=== PATIENT | female | born 2000 | race African-American/Black ===

== ENCOUNTER 2023-06-13 14:18 | Emergency (ER) | payer BC, SELFPAY ==
--- NOTE | 2023-06-13 14:20 | ED.FEMALEGU ---
HPI - Female Genitourinary General Chief complaint: Urogenital-Female Stated complaint: STD Time Seen by Provider: 06/13/23 14:48 Source: patient and RN notes reviewed Mode of arrival: ambulatory Limitations: no limitations History of Present Illness HPI Narrative: 22-year-old female presents concern for possible exposure to STDs. She denies symptoms but reports having unprotected sex with multiple partners. She reports history of treated STDs MD elicited complaint: possible STD Related Data Allergies Allergy/AdvReac Type Severity Reaction Status Date / Time No Known Allergies Allergy Unknown Verified 06/13/23 14:40 Review of Systems Review of Systems: CONSTITUTIONAL: Denies malaise, chills, sweats, or fever. CARDIOVASCULAR: Denies chest pain, palpitations, or edema. RESPIRATORY: Denies cough or dyspnea. GASTROINTESTINAL: Denies abdominal pain, nausea, vomiting, diarrhea GENITOURINARY: Denies vaginal discharge, dysuria, frequency, urgency, suprapubic pressure. Denies flank pain or hematuria. SKIN: Denies rash or itching. MUSCULOSKELETAL: Denies back pain or myalgia. All systems reviewed & are unremarkable except as noted in HPI and below PMFSH Past Medical History Medical History Encounter for counseling regarding contraception Epidermal inclusion cyst Gonorrhea Hemorrhoidal skin tag Hidradenitis suppurativa of right axilla Increased urinary frequency Right ear pain STD (sexually transmitted disease) Upper respiratory infection Vaginal odor Well child visit Social History Social History Social History: Single Smoking status: Never smoker Second hand tobacco smoke exposure: No Alcohol intake: never Substance use: never Substance use type: does not use Lack of Transportation: No Lack of Food: Never True Current Housing: I Have Housing Concerned About Future Housing: No Difficulty Paying Gas/Electric Bills: No Difficulty Paying for Meds: No Currently Unemployed: No Education: Decline to Answer Difficulty w/ Childcare or Family Care: No Living arrangements: with family Occupation/Education: occupation Additional occupation/education comments: 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 Gender identity (if verbalized by the patient): Female Sexual Orientation (if Verbalized by the Patient): Straight or Heterosexual Spiritual care concerns: No Comments At time of signature, agree with nursing past medical, surgical, social and family history. There is no relevant family history pertinent to the presenting complaint Exam Narrative: GENERAL: Well-appearing, well-nourished, and in no acute distress. HEAD: Normocephalic. EYES: PERRLA, conjunctivae clear. NECK: Supple. No lymphadenopathy CHEST: Clear to auscultation. No respiratory distress. HEART: Regular rate and rhythm. SKIN: Warm, dry, no rash. NEURO: Alert and oriented x3. PSYCH: Normal mood and affect Course Course Emergency Course: Patient does not want to start on antibiotics prophylactically, she would rather wait for results. She understands that she may need to return for an injection. Patient is aware of diagnosis, understands and agrees to treatment plan. Anticipatory guidance given. Patient agrees to follow-up as directed and is aware of reasons to seek care at the emergency department. Portions of this record may have been created with voice recognition software Level of Care: Express Care Visit Vital Signs Vital signs: Reviewed. MDM - Female Genitourinary MDM Narrative Medical decision making narrative: Exam findings and UA show no acute concerns or changes; patient is non-toxic appearing and is in no distress. Patient is appropriate for outpatient treatment and follow-up. Differential Diagnosis Differential diagnosis: Likely urinary tract infection and cystitis Critical Care Time Cr
[2023-06-13 14:30] VITALS: BP 125/70; PULSE 93; RESP 14; TEMP 36.9; O2SAT 100
[2023-06-13 18:07] LABS: Trichomonas Vag PCR NOT DETECTED (NOT DETECTE)
[2023-06-13 18:33] LABS: Chlamydia trachomatis DETECTED (NOT DETECTE); Neisseria gonorrhoeae PCR NOT DETECTED (NOT DETECTE)
== END 2023-06-13 15:01 | disposition home or self-care (01) ==
PROVIDERS: Emergency Provider Nurse Practitioner; PCP Family Medicine
DX: Z11.3 Encounter for screening for infections with a predominantly sexual mode of transmission (principal)
CPT/HCPCS: 87491; 87591; 87661; 99214; G0463

== ENCOUNTER 2024-03-17 10:46 | Outpatient (CLI) | payer BC, SELFPAY ==
--- NOTE | ~2024-03-17 | XR_ITS ---
CHEST RADIOGRAPH, PA AND LATERAL CLINICAL HISTORY: CENTRALIZED CHEST PAIN X 3 WKS . COMPARISON: None available TECHNIQUE: PA and lateral views of the chest. FINDINGS The cardiomediastinal silhouette is unremarkable. The lungs are clear. Visualized osseous structures and soft tissues are unremarkable. IMPRESSION: No focal infiltrate or effusion. Reviewed, dictated and finalized at location A.
== END 2024-03-17 10:47 | disposition home or self-care (01) ==
PROVIDERS: PCP Family Medicine; Visit Provider Family Medicine
DX: R07.9 Chest pain, unspecified (principal)
CPT/HCPCS: 71046

== ENCOUNTER 2024-03-17 11:55 | Emergency (ER) | payer BC, SELFPAY ==
[2024-03-17 12:03] VITALS: BP 124/76; PULSE 78; RESP 18; TEMP 36.9; O2SAT 100
--- NOTE | 2024-03-17 12:34 | ED.FEMALEGU ---
HPI - Female Genitourinary General Chief complaint: Urogenital-Female Stated complaint: STD Time Seen by Provider: 03/17/24 12:34 Source: patient, RN notes reviewed and old records reviewed Mode of arrival: ambulatory Limitations: no limitations History of Present Illness HPI Narrative: 23-year-old female presents to the [facility] with concerns for an STD. Patient reports abnormal smell and abnormal discharge that started approximately 10 days ago. Onset (ago): day(s) (10) Related Data Allergies Allergy/AdvReac Type Severity Reaction Status Date / Time No Known Allergies Allergy Unknown Verified 03/17/24 12:00 Review of Systems Review of Systems: All systems reviewed & are unremarkable except as noted in HPI and below Constitutional: Constitutional: Reports no additional constitutional complaints Eyes: Eyes: Reports no additional eye complaints ENT: Reports system reviewed and no additional complaints, except as documented Cardiovascular: Cardiovascular: Reports no additional cardiovascular complaints, Denies chest pain and Denies dyspnea Respiratory: Respiratory: Reports no additional respiratory complaints, Denies chest congestion, Denies cough and Denies dyspnea Gastrointestinal: Gastrointestinal: Reports no additional gastrointestinal complaints, Denies abdominal pain, Denies nausea and Denies vomiting Genitourinary: Genitourinary: Reports as per HPI Musculoskeletal: Musculoskeletal: Reports no additional musculoskeletal complaints Integumentary/Breasts: Skin/Breast: Reports system reviewed and no additional complaints, except as docu Neurologic: Reports system reviewed and no additional complaints, except as documented Psychiatric: Psychiatric: Reports no additional psychiatric complaints Allergic/Immunologic: Allergic/Immunologic: Reports no additional allergic/immunologic complaints PMFSH Past Medical History Medical History Encounter for counseling regarding contraception Epidermal inclusion cyst Gonorrhea Hemorrhoidal skin tag Hidradenitis suppurativa of right axilla HPV vaccine counseling Increased urinary frequency Right ear pain School physical exam STD (sexually transmitted disease) Unspecified sprain of right thumb, initial encounter Upper respiratory infection URI, acute Vaginal odor Well child visit Social History Social History Social History: Single Smoking status: Never smoker Second hand tobacco smoke exposure: No Alcohol intake: never Substance use: never Substance use type: does not use Lack of Transportation: No Lack of Food: Never True Current Housing: I Have Housing Concerned About Future Housing: No Difficulty Paying Gas/Electric Bills: No Difficulty Paying for Meds: No Currently Unemployed: No Education: Decline to Answer Difficulty w/ Childcare or Family Care: No Living arrangements: with family Occupation/Education: occupation Additional occupation/education comments: 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 Gender identity (if verbalized by the patient): Female Sexual Orientation (if Verbalized by the Patient): Straight or Heterosexual Spiritual care concerns: No Comments At the time of my signature, I reviewed and agree with the nursing past medical, surgical, social, and family history. There is no relevant family history pertinent to the patient complaint. Exam Const: General: cooperative, healthy appearing, comfortable, no acute distress, well developed, alert and well nourished Nutritional Appearance: well nourished Orientation/consciousness: patient oriented x3 Limitations: no limitations HENMT: Head: normal to inspection Ears: hearing grossly normal bilaterally and external ears normal Face/Nose/Sinus: Normal external nose present, normal facial exam and face symmetric Face and sinus: normal facial exam and face symmetric Ey
[2024-03-17 12:46] LABS: BEDSIDEPREGUCG Negative (Negative); EDUAAPPEAR Clear; EDUABILI Negative (Negative); EDUABLOOD Negative (Negative); EDUACOLOR1 Yellow; EDUAGLUCOSE Negative (Negative); EDUAKETONE Negative (Negative); EDUALEUKO Negative (Negative); EDUANITRATE Negative (Negative); EDUAPROTEIN Negative (Negative); EDUASPGRAVITY 1.025; EDUAUROBILI 0.2
[2024-03-18 12:38] LABS: Bacterial Vaginosis POSITIVE (NEGATIVE)
[2024-03-18 14:29] LABS: Trichomonas Vag PCR NOT DETECTED (NOT DETECTE)
[2024-03-18 14:55] LABS: Chlamydia trachomatis NOT DETECTED (NOT DETECTE); Neisseria gonorrhoeae PCR NOT DETECTED (NOT DETECTE)
== END 2024-03-17 12:59 | disposition home or self-care (01) ==
PROVIDERS: Emergency Provider Nurse Practitioner; PCP Family Medicine
DX: N76.0 Acute vaginitis (principal); B37.31 Acute candidiasis of vulva and vagina; Z20.2 Contact with and (suspected) exposure to infections with a predominantly sexual mode of transmission
CPT/HCPCS: 81003; 81025; 81513; 87070; 87491; 87591; 87661; 99213; G0463

== ENCOUNTER 2024-11-08 08:33 | Emergency (ER) | payer BC, SELFPAY ==
--- NOTE | 2024-11-08 08:50 | ED_ITS ---
HPI - General Adult General Stated complaint: std testing Source: patient Mode of arrival: ambulatory Limitations: no limitations History of Present Illness HPI narrative: the patient is a 23-year-old female presenting for STD testing. Patient reports intermittent vaginal itching. Denies known exposure to sexually transmitted infection. Does report engaging in unprotected sexual intercourse sometimes. Denies menstrual abnormalities. Denies any abnormal vaginal discharge. no Additional complaints. Related Data Allergies Allergy/AdvReac Type Severity Reaction Status Date / Time No Known Allergies Allergy Unknown Verified 08/30/24 08:59 Review of Systems Review of Systems: CONSTITUTIONAL: Denies body aches, fever, chills, or sweats. EYES: Denies visual changes, redness, or discharge. ENT: Denies rhinorrhea, congestion, sore throat, or otalgia. CARDIOVASCULAR: Denies chest pain, palpitations, or edema. RESPIRATORY: Denies cough or dyspnea. GASTROINTESTINAL: Denies abdominal pain, nausea, vomiting, or diarrhea. GENITOURINARY: reports intermittent vaginal itching Denies dysuria or hematuria. SKIN: Denies rash, itching, or wounds. MUSCULOSKELETAL: Denies back pain, joint pain, or myalgia. NEUROLOGIC: Denies headache, numbness, tingling, or weakness. PSYCH: Denies depression or anxiety. All systems reviewed & are unremarkable except as noted in HPI and below Genitourinary: Genitourinary: Reports as per HPI, Denies abnormal menses, Denies abnormal vaginal bleeding, Denies genital lesions, Denies dyspareunia, Denies dysuria, Denies flank pain, Denies vaginal discharge, Denies vaginal dryness and Denies vaginal odor PMFSH Past Medical History Medical History Chest pain at rest URI, acute Unspecified sprain of right thumb, initial encounter School physical exam HPV vaccine counseling Hidradenitis suppurativa of right axilla Epidermal inclusion cyst STD (sexually transmitted disease) Gonorrhea Increased urinary frequency Vaginal odor Hemorrhoidal skin tag Right ear pain Upper respiratory infection Encounter for counseling regarding contraception Well child visit Social History Social History Social History: Single Smoking status: Never smoker Second hand tobacco smoke exposure: No Alcohol intake: never Substance use: never Substance use type: does not use Do You Feel Safe in your Home?: Yes Lack of Transportation: No Lack of Food: Never True Current Housing: I Have Housing Concerned About Future Housing: No Difficulty Paying Gas/Electric Bills: No Difficulty Paying for Meds: No Currently Unemployed: No Education: Decline to Answer Difficulty w/ Childcare or Family Care: No Living arrangements: with family Occupation/Education: occupation Additional occupation/education comments: 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 Gender identity (if verbalized by the patient): Female Sexual Orientation (if Verbalized by the Patient): Straight or Heterosexual Spiritual care concerns: No Exam Narrative: GENERAL: Well-appearing, well-nourished, and in no acute distress. HEAD: Normocephalic, atraumatic. EYES: EOMI. No redness or drainage. Conjunctivae normal. ENT: Mucous membranes pink and moist. Nares clear. No rhinorrhea. TMs normal bilaterally. Throat normal. Uvula midline. NECK: Normal AROM. Supple. No lymphadenopathy. CHEST: No respiratory distress. Clear to auscultation. HEART: Regular rate and rhythm. No murmur appreciated. Normal peripheral pulses. ABDOMEN: Soft, nontender, nondistended, normal active bowel sounds. no CVAT. MUSCULOSKELETAL: No bony tenderness. EXTREMITIES: Normal range of motion. No edema. SKIN: Warm, dry, no rash. Capillary refill normal. Normal skin turgor. NEURO: No focal deficits. Alert and oriented x3. Gait steady. PSYCH: Normal affect. No signs of depression or anxiety. : General: Yes other ( Declined pelvic exam) Course Course Level of Care: Express Care Visit Vital Signs Vital signs: Vital Signs Temperature 98.0 F 11/08/24 08:51 Pulse Rate 83 11/08/24 08:51 Respiratory Rate 16 11/08/24 08:51 Blood Pressure 128/72 11/08/24 08:51 Pulse Oximetry 99 11/08/24 08:51 Oxygen Delivery Room Air 11/08/24 08:51 Temperature 98.0 F 11/08/24 08:51 Pulse Rate 83 11/08/24 08:51 Respiratory Rate 16 11/08/24 08:51 Blood Pressure 128/72 11/08/24 08:51 Pulse Oximetry 99 11/08/24 08:51 Oxygen Delivery Room Air 11/08/24 08:51 Medical Decision Making Medical Records Medical records reviewed: Yes I reviewed the external patient's medical records. Vital Signs Vital Signs: Vital Signs Temperature 98.0 F 11/08/24 08:51 Pulse Rate 83 11/08/24 08:51 Respiratory Rate 16 11/08/24 08:51 Blood Pressure 128/72 11/08/24 08:51 Pulse Oximetry 99 11/08/24 08:51 Oxygen Delivery Room Air 11/08/24 08:51 Temperature 98.0 F 11/08/24 08:51 Pulse Rate 83 11/08/24 08:51 Respiratory Rate 16 11/08/24 08:51 Blood Pressure 128/72 11/08/24 08:51 Pulse Oximetry 99 11/08/24 08:51 Oxygen Delivery Room Air 11/08/24 08:51 Discharge Plan Discharge Clinical Impression: At risk for sexually transmitted disease due to unprotected sex, Itching of vagina Patient Disposition: Home Condition: Stable Instructions: Safe Sex Practices (ED) Patient Language: Bengali Prescriptions: No Action hydroxyzine HCl 10 mg tablet 10 mg PO TID PRN (Reason: itching) Qty: 30 0RF norethindrone-e.estradiol-iron [Elicia Fe 06/26 (28)] 1 mg-20 mcg (21)/75 mg (7) tablet See Rx Instructions .ROUTE .COMPLEX Qty: 84 3RF Dose Instruction: Take 1 tablet by mouth once daily Rx Instructions: Take 1 tablet by mouth once daily Follow-up/Referrals: PHYSICIAN,[employer] [Primary Care Provider] - 11/08/24 Time of Disposition: 08:53
[2024-11-08 08:51] VITALS: BP 128/72; PULSE 83; RESP 16; TEMP 36.7; O2SAT 99
[2024-11-08 20:26] LABS: Trichomonas Vag PCR DETECTED (NOT DETECTE)
[2024-11-08 21:01] LABS: Chlamydia trachomatis DETECTED (NOT DETECTE); Neisseria gonorrhoeae PCR NOT DETECTED (NOT DETECTE)
== END 2024-11-08 09:25 | disposition home or self-care (01) ==
PROVIDERS: Emergency Provider Registered Nurse
DX: N89.8 Other specified noninflammatory disorders of vagina (principal); Z72.51 High risk heterosexual behavior; Z20.2 Contact with and (suspected) exposure to infections with a predominantly sexual mode of transmission
CPT/HCPCS: 87491; 87591; 87661; 99213; G0463

== ENCOUNTER 2024-12-01 16:36 | Emergency (ER) | payer BC, SELFPAY ==
[2024-12-01 16:47] VITALS: BP 142/81; PULSE 90; RESP 16; TEMP 36.7; O2SAT 100
[2024-12-01 17:07] LABS: EDUAAPPEAR Cloudy; EDUABILI Negative (Negative); EDUABLOOD 3+ (Negative); EDUACOLOR1 Pink; EDUAGLUCOSE Negative (Negative); EDUAKETONE Negative (Negative); EDUALEUKO 2+ (Negative); EDUANITRATE Negative (Negative); EDUAPH 6.5; EDUAPROTEIN 2+ (Negative); EDUASPGRAVITY 1.025; EDUAUROBILI 0.2
--- NOTE | 2024-12-01 17:08 | ED.FEMALEGU ---
HPI - Female Genitourinary General Chief complaint: Urogenital-Female Stated complaint: blood in urine Time Seen by Provider: 12/01/24 16:55 Source: patient Mode of arrival: ambulatory Limitations: no limitations History of Present Illness HPI Narrative: Lauren is a 23-year-old female patient presenting to the clinic today with complaints of blood in her urine, suprapubic pain, and urinary frequency. She reports symptoms started around 6:00p.m. last night. Recently has been treated for chlamydia, Trichomonas-was given doxycycline and metronidazole. She reports she finished this medication last week. States over the last few days she has had some vaginal irritation and itching. She denies any blood coming from the vagina or rectum. Noticed blood when she urinates and when she wipes after urination. Was prescribed some Diflucan and took her 1st dose today. Denies any fevers, chills, body aches, back pain, nausea, or vomiting. Related Data Home Medications ?Medication ?Instructions ?Recorded ?Confirmed ?Last Taken ?Type fluconazole 150 mg tablet mg 12/01/24 Unknown History Allergies Allergy/AdvReac Type Severity Reaction Status Date / Time No Known Allergies Allergy Unknown Verified 12/01/24 16:46 Review of Systems Review of Systems: Pertinent positives per HPI. Patient denies any fever, chills, rash, headache, visual changes, dizziness, cough, runny nose, sore throat, shortness of breath, chest pain, palpitations, nausea, vomiting, diarrhea, constipation PMFSH Past Medical History Medical History Chest pain at rest URI, acute Unspecified sprain of right thumb, initial encounter School physical exam HPV vaccine counseling Hidradenitis suppurativa of right axilla Epidermal inclusion cyst STD (sexually transmitted disease) Gonorrhea Increased urinary frequency Vaginal odor Hemorrhoidal skin tag Right ear pain Upper respiratory infection Encounter for counseling regarding contraception Well child visit Social History Social History Social History: Single Smoking status: Never smoker Second hand tobacco smoke exposure: No Alcohol intake: never Substance use: never Substance use type: does not use Do You Feel Safe in your Home?: Yes Lack of Transportation: No Lack of Food: Never True Current Housing: I Have Housing Concerned About Future Housing: No Difficulty Paying Gas/Electric Bills: No Difficulty Paying for Meds: No Currently Unemployed: No Education: Decline to Answer Difficulty w/ Childcare or Family Care: No Living arrangements: with family Occupation/Education: occupation Additional occupation/education comments: 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 Gender identity (if verbalized by the patient): Female Sexual Orientation (if Verbalized by the Patient): Straight or Heterosexual Spiritual care concerns: No Comments At the time of my signature, I reviewed and agree with the nursing past medical, surgical, social, and family history. There is no relevant family history pertinent to the patient complaint. Exam Narrative: General: Well-developed, well nourished, in no apparent distress. Head: Normocephalic, atraumatic. Cardio: Regular rate and rhythm, s1 and s2 normal, no murmur appreciated. Resp: Clear to auscultation bilaterally, no rhonchi, rales, wheezing or rubs. Abdomen: Soft, pliable, bowel sounds present in all quadrants, suprapubic tender to palpation, no organomegly, no CVAT tenderness. : Deferred Course Course Emergency Course: Portions of this record may have been created with voice recognition software. Level of Care: Express Care Visit Vital Signs Vital signs: Vital Signs Temperature 36.7 C 12/01/24 16:47 Pulse Rate 90 12/01/24 16:47 Respiratory Rate 16 12/01/24 16:47 Blood Pressure 142/81 H 12/01/24 16:47 Pulse Oximetry 100 12/01/24 16:47 Oxygen Delivery Room Air 12/01/24 16:47 Temperature 36.7 C 12/01/24 16:47 Pulse Rate 90 12/01/24 16:47 Respiratory Rate 16 12/01/24 16:47 Blood Pressure 142/81 H 12/01/24 16:47 Pulse Oximetry 100 12/01/24 16:47 Oxygen Delivery Room Air 12/01/24 16:47 Vital signs reviewed MDM - Female Genitourinary MDM Narrative Medical decision making narrative: At the time of visit patient is resting comfortably on the exam table. Patient appears to be nontoxic. Labs: Urinalysis positive for leukocytes, protein, and blood. We will send urine for culture. Plan: I suspect patient has UTI. Will send in prescription for Bactrim and extend the Diflucan prescription. We will send urine for culture. Supportive measures were discussed with the patient and they voiced understanding discharge instructions and agrees to treatment plan. Return precautions reviewed Differential Diagnosis Differential diagnosis: Likely urinary tract infection, bacterial vaginosis, trichomoniasis, cervicitis, ovarian cyst, vaginitis, ruptured ovarian cyst, cystitis and dysmenorrhea Lab Data Labs: Lab Results 12/01/24 Range/Units 16:53 POC Urine Color Interior POC Urine Clarity Cloudy POC Urine pH 6.5 POC Ur Specif [place] 1.025 POC Urine Protein 2+ (Negative) POC Ur Glucose (UA) Negative (Negative) POC Urine Ketones Negative (Negative) POC Urine Blood 3+ (Negative) POC Urine Nitrite Negative (Negative) POC Urine Bilirubin Negative (Negative) POC Urine Urobilinogen 0.2 POC U Leukocyte Esteras 2+ (Negative) Discharge Plan Discharge Clinical Impression: Vaginal yeast infection UTI (urinary tract infection) Qualifiers: Urinary tract infection type: acute cystitis Hematuria presence: with hematuria Qualified Code(s): N30.01 - Acute cystitis with hematuria Patient Disposition: Home Condition: Stable Instructions: Antibiotic Form, Urinary Tract Infection in Women (ED), Yeast Infection (ED) Additional Instructions: Urinalysis positive for leukocytes, blood, and protein. Take Bactrim DS as prescribed Take fluconazole as prescribed May purchase [id number] Monistat cream and apply to the external vagina No intercourse until your symptoms have resolved Increase fluids and stay well hydrated Wipe front to back. May use wet wipes. Avoid tub baths If sexually active- pee before and after intercourse. Wear cotton panties Avoid tight clothing up against the genitals Follow up with your PCP in 1 week if symptoms persist. Patient Language: [place] Prescriptions: New sulfamethoxazole-trimethoprim [Bactrim DS] 800-160 mg tablet 1 tablet PO Q12H 5 Days Qty: 10 0RF fluconazole 150 mg tablet 150 mg PO ONCE Qty: 2 0RF Rx Instructions: as a single dose. May repeat in 72 hours if needed. No Action fluconazole 150 mg tablet norethindrone-e.estradiol-iron [Elicia Fe 06/26 (28)] 1 mg-20 mcg (21)/75 mg (7) tablet See Rx Instructions .ROUTE .COMPLEX Qty: 84 3RF Dose Instruction: Take 1 tablet by mouth once daily Rx Instructions: Take 1 tablet by mouth once daily Follow-up/Referrals: Florence Guzman MD [Primary Care Provider] - Time of Disposition: 17:05 Quality NIHSS Nursing Documentation ED NIHSS nursing documentation: reviewed/agree
== END 2024-12-01 17:12 | disposition home or self-care (01) ==
PROVIDERS: Emergency Provider Nurse Practitioner Family; PCP Family Medicine
DX: N30.01 Acute cystitis with hematuria (principal); B37.31 Acute candidiasis of vulva and vagina
CPT/HCPCS: 81003; 87077; 87086; 87186; 99213; G0463

== ENCOUNTER 2025-02-21 09:17 | Outpatient (CLI) | payer BC, SELFPAY ==
[2025-02-21 10:18] LABS: Hepatitis B Surface Antigen Negative (Negative); Syphilis IgG/IgM Antibody Non-Reactive (Nonreactive)
[2025-02-21 10:24] LABS: HAV RESULT Negative (Negative); Hepatitis B Core IgM Result Negative (Negative)
[2025-02-21 10:28] LABS: HIV 1/2 Ab P24 Ag Result Negative (Negative)
[2025-02-21 10:41] LABS: Trichomonas Vag PCR NOT DETECTED (NOT DETECTE)
== END 2025-02-21 09:18 | disposition home or self-care (01) ==
LOC: ANHLAB 09:18
PROVIDERS: PCP Family Medicine; Visit Provider Student in an Organized Health Care Education/Training Program
DX: Z72.51 High risk heterosexual behavior (principal); Z20.2 Contact with and (suspected) exposure to infections with a predominantly sexual mode of transmission
CPT/HCPCS: 36415; 80074; 86593; 86703; 87491; 87591; 87661; G0432

== ENCOUNTER 2025-03-05 19:19 | Emergency (ER) | payer BC, SELFPAY ==
--- NOTE | 2025-03-05 19:24 | ED_ITS ---
HPI - Headache General Chief Complaint: Headache Stated Complaint: Headaches X 4 days Time Seen by Provider: 03/05/25 19:30 Source: patient Mode of arrival: ambulatory Limitations: no limitations History of Present Illness HPI Narrative: Lauren is a 24-year-old female patient presenting to the clinic today with complaints of headache x4 days. She reports she has been taking extra-strength Tylenol and this has not been taking her headache away. Rates her pain currently a 4/10 and states it is over the right occipital right/parietal lobe currently but the headache has been moving around. When headaches at it worst she feels fatigued. At time she does have some nausea but denies any nausea at this current time. No photosensitivity or phonophobia. Last menstrual period was February 05, 2025. Denies any chance of . Denies any dizziness or visual changes. No head injury. Denies any URI symptoms/sore throat. Related Data Allergies Allergy/AdvReac Type Severity Reaction Status Date / Time No Known Allergies Allergy Unknown Verified 03/05/25 19:32 Review of Systems Review of Systems: Pertinent positives per HPI. Patient denies any fever, chills, rash, visual changes, dizziness, cough, runny nose, sore throat, shortness of breath, chest pain, palpitations, nausea, vomiting, diarrhea, constipation, abdominal pain, or any urinary issues. [facility] Past Medical History Medical History Chest pain at rest URI, acute Unspecified sprain of right thumb, initial encounter School physical exam HPV vaccine counseling Hidradenitis suppurativa of right axilla Epidermal inclusion cyst STD (sexually transmitted disease) Gonorrhea Increased urinary frequency Vaginal odor Hemorrhoidal skin tag Right ear pain Upper respiratory infection Encounter for counseling regarding contraception Well child visit Social History Social History Social History: Single Smoking status: Never smoker Second hand tobacco smoke exposure: No Alcohol intake: never Substance use: never Substance use type: does not use Do You Feel Safe in your Home?: Yes Lack of Transportation: No Lack of Food: Never True Current Housing: I Have Housing Concerned About Future Housing: No Difficulty Paying Gas/Electric Bills: No Difficulty Paying for Meds: No Currently Unemployed: No Education: Decline to Answer Difficulty w/ Childcare or Family Care: No Living arrangements: with family Occupation/Education: occupation Additional occupation/education comments: 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 Gender identity (if verbalized by the patient): Female Sexual Orientation (if Verbalized by the Patient): Straight or Heterosexual Spiritual care concerns: No Comments At the time of my signature, I reviewed and agree with the nursing past medical, surgical, social, and family history. There is no relevant family history pertinent to the patient complaint. Exam Narrative: General: Well-developed, well nourished, in no apparent distress Head: Normocephalic, atraumatic Eyes: Pupils equally round and reactive to light bilaterally, EOM intact, sclera and conjunctive clear, no discharge, lids normal Ears: TMs intact and clear, ear canals clear, no drainage, grossly hearing normal. Nose: Nares patent, no discharge, no inflammation, no sinus tenderness. Mouth: Oropharynx without lesions or masses, good dentition, MMM. Tongue midline, even rise and fall of uvula Neck: Supple, trachea midline, no enlargement of anterior or posterior cervical nodes, no thyroid masses or goiter palpable. Cardio: Regular rate and rhythm, s1 and s2 normal, no murmur appreciated. Resp: Clear to auscultation bilaterally anteriorly and posteriorly, no rhonchi, rales, wheezing or rubs Musculoskeletal: No deformity, non-tender to palpation, grossly normal range of motion, muscle strength strong and equal, peripheral pulse strong, no edema, no cyanosis, normal gait and station Neuro: Alert and oriented x4 with normal speech, no focal deficits, cranial nerves I through XII intact, muscle strength 5 out of 5, sensation intact bilaterally, negative Romberg test Course Course Emergency Course: Portions of this record may have been created with voice recognition software. Level of Care: Express Care Visit Vital Signs Vital signs: Vital Signs Temperature 36.7 C 03/05/25 19:25 Pulse Rate 85 03/05/25 19:25 Respiratory Rate 16 03/05/25 19:25 Blood Pressure 126/72 03/05/25 19:25 Pulse Oximetry 100 03/05/25 19:25 Oxygen Delivery Room Air 03/05/25 19:25 Temperature 36.7 C 03/05/25 19:25 Pulse Rate 85 03/05/25 19:25 Respiratory Rate 16 03/05/25 19:25 Blood Pressure 126/72 03/05/25 19:25 Pulse Oximetry 100 03/05/25 19:25 Oxygen Delivery Room Air 03/05/25 19:25 Vital signs reviewed MDM - Headache MDM Narrative Medical decision making narrative: At the time of visit patient is resting comfortably on the exam table. Patient appears to be nontoxic. Complaints of headache x4 days. She reports she has been taking extra-strength Tylenol and this has not been taking her headache away. Rates her pain currently a 4/10 and states it is over the right occipital right/parietal lobe currently but the headache has been moving around. When headaches at it worst she feels fatigued. At time she does have some nausea but denies any nausea at this current time. No photosensitivity or phonophobia. Last menstrual period was February 05, 2025. Denies any chance of . Denies any dizziness or visual changes. No head injury. Denies any URI symptoms /sore throat. Toradol 60mg IM ordered. Medications: Toradol 60 mg IM given in the clinic today Plan: I suspect patient has acute headache. Toradol 60 mg IM given in the clinic today for headache. Pain down to a 2/10 after Toradol injection. May take Tylenol/Motrin as needed for pain. Supportive measures were discussed with the patient and they voiced understanding discharge instructions and agrees to treatment plan. Return precautions reviewed. Differential Diagnosis Differential diagnosis: Likely migraine, tension headache, subarachnoid hemorrhage, headache, meningitis, sinusitis and postconcussion syndrome Discharge Plan Discharge Clinical Impression: Headache Qualifiers: Headache type: tension-type Headache chronicity pattern: acute headache Intractability: not intractable Qualified Code(s): G44.209 - Tension-type headache, unspecified, not intractable Patient Disposition: Home Condition: Stable Instructions: Antibiotic Form, Acute Headache (ED) Additional Instructions: Toradol 60 mg IM given in the clinic today for headache Go home and rest in a cool dark place Increase fluids and stay well hydrated May take Tylenol/ibuprofen as needed for headache If headache is persistent follow-up with PCP for further evaluation If you develop worst headache of your life-recommend going to the emergency room for further evaluation Patient Language: French Prescriptions: No Action norethindrone-e.estradiol-iron [Elicia Fe 06/26 (28)] 1 mg-20 mcg (21)/75 mg (7) tablet See Rx Instructions .ROUTE .COMPLEX Qty: 84 3RF Dose Instruction: Take 1 tablet by mouth once daily Rx Instructions: Take 1 tablet by mouth once daily metronidazole 500 mg tablet 500 mg PO BID 7 Days Qty: 14 0RF Follow-up/Referrals: Florence Guzman MD [Primary Care Provider, [facility]] Time of Disposition: 19:35 Quality NIHSS Nursing Documentation ED NIHSS nursing documentation: reviewed/agree
[2025-03-05 19:25] VITALS: BP 126/72; PULSE 85; RESP 16; TEMP 36.7; O2SAT 100
[2025-03-05] MEDS: KETOROLAC (*BKC) 60 MG/2 ML VIAL IM (19:39)
== END 2025-03-05 20:01 | disposition home or self-care (01) ==
PROVIDERS: Emergency Provider Nurse Practitioner Family; PCP Family Medicine
DX: G44.209 Tension-type headache, unspecified, not intractable (principal)
CPT/HCPCS: 96372; 99213; G0463; J1885